=== PATIENT | male | born 1945 | race Caucasian/White ===

== ENCOUNTER 2019-12-15 08:45 | Day surgery (SDC) | payer MEDICARE, BC ==
[~2019-12-15] VITALS: Ht 188 cm; Wt 88.2 kg
[2019-12-15] VITALS (9 sets, daily range): BP systolic 92–141; BP diastolic 53–72
[2019-12-15 09:35] LABS: BASOPHILS % (AUTO) 0.8 % (0-1); EOSINOPHILS % (AUTO) 0.6 % (0-6); HEMATOCRIT 37.5 % (42.0-52.0); HEMOGLOBIN 12.8 g/dl (14.0-17.9); LYMPHOCYTES # (AUTO) 1.4 X10'3 (1.1-4.8); LYMPHOCYTES % (AUTO) 27.8 % (21-51); MEAN CORPUSCULAR HEMOGLOBIN 31.5 PG (27.0-31.0); MEAN CORPUSCULAR HGB CONC 34.2 g/dL (33.0-36.5); MONOCYTES # (AUTO) 0.7 X10'3 (0-0.9); MONOCYTES % (AUTO) 13.9 % (2-12); NEUTROPHILS # (AUTO) 2.9 X10'3 (1.8-7.7); NEUTROPHILS % (AUTO) 56.9 % (42-75); PLATELET COUNT 52 X10'3 (140-440); RED BLOOD COUNT 4.07 X10'6 (4.70-6.10); RED CELL DISTRIBUTION WIDTH 16.9 % (11.5-14.5)
[2019-12-15 09:44] LABS: ALBUMIN 2.2 G/DL (3.4-5.0); ANION GAP 7 (8-16); BLOOD UREA NITROGEN 9 MG/DL (7-18); BUN/CREATININE RATIO 9.8 (5.4-32.0); CALCIUM 8.2 MG/DL (8.5-10.1); CHLORIDE 102 MMOL/L (99-107); CREATININE 0.92 MG/DL (0.60-1.10); GLUCOSE 91 MG/DL (70-104); MAGNESIUM 1.8 MG/DL (1.5-2.4); POTASSIUM 4.4 MMOL/L (3.5-5.1); SODIUM 136 MMOL/L (135-145); TOTAL CARBON DIOXIDE 26.9 MMOL/L (24-32); eGFR 81 ML/MIN
[2019-12-15] MEDS ORDERED: FOLI PO (11:01)
[2019-12-15] MEDS ORDERED: CLOP75TA35 PO (11:02)
[2019-12-15] MEDS ORDERED: THIA50TA10 PO (11:02)
[2019-12-15] MEDS ORDERED: PROP10TA10 PO (11:03)
[2019-12-15] MEDS ORDERED: SPIR25TA5 PO (11:11)
[2019-12-15] MEDS ORDERED: FURO20TA4 PO (11:18)
[2019-12-15] MEDS ORDERED: FURO-150 PO (11:19)
[2019-12-15] MEDS ORDERED: ATOR20TA PO (11:19)
[2019-12-15] MEDS ORDERED: midazolam 2 mg/2 ml injection ONE ×3 (11:21→15:25)
[2019-12-15] MEDS ORDERED: vancomycin 1,000mg inj ONE ×3 (11:22→14:47)
[2019-12-15] MEDS ORDERED: fentaNYL/PF 50MCG/1 ML 2ML syringe ONE ×2 (11:22→14:46)
[2019-12-15] MEDS ORDERED: ceFAZolin 1000mg inj ONE ×2 (11:22→14:47)
[2019-12-15] MEDS ORDERED: LIDOcaine 1% W/epiNEPHrine 1:100,000 20ml vial ONE ×2 (11:22→14:47)
[2019-12-15] MEDS ORDERED: iohexol 350 MG/ML 50ML vial IV ONE (14:47)
== END 2019-12-15 18:00 | disposition home or self-care (01) ==
LOC: SSTAY O 08:45
PROVIDERS: ATTEND Internal Medicine Cardiovascular Disease
DX: I44.1 Atrioventricular block, second degree (principal); I44.7 Left bundle-branch block, unspecified; I35.0 Nonrheumatic aortic (valve) stenosis; R53.83 Other fatigue; E78.5 Hyperlipidemia, unspecified; R53.1 Weakness; K70.31 Alcoholic cirrhosis of liver with ascites; Z79.899 Other long term (current) drug therapy; Z98.890 Other specified postprocedural states; Z98.49 Cataract extraction status, unspecified eye; Z95.2 Presence of prosthetic heart valve; I25.10 Atherosclerotic heart disease of native coronary artery without angina pectoris
CPT/HCPCS: 33208; 36415; 36430; 71046; 80048; 83735; 85025; 85610; 86885; 86900; 86901; 93005; 99152; 99153; C1785; C1894; C1898; J0690; J2250; J3010; J3370; P9035; Q9967; A4565; A4620

== ENCOUNTER 2020-01-08 07:30 | Day surgery (SDC) | payer MEDICARE, BC ==
[~2020-01-08] VITALS: Ht 210.8 cm; Wt 88.0 kg
[2020-01-08] VITALS (13 sets, daily range): BP systolic 104–129; BP diastolic 48–86
[~2020-01-08 07:30] MED LIST: ATOR20TA PO; CLOP75TA35 PO; FOLI PO; FURO-150 PO; FURO20TA4 PO; PROP10TA10 PO; SPIR25TA5 PO; THIA50TA10 PO
[2020-01-08] MEDS ORDERED: normal saline 1000ml 1,000 ML IV SCH (08:55)
[2020-01-08] MEDS ORDERED: fentaNYL/PF 50MCG/1 ML 2ML syringe ONE (09:14)
[2020-01-08] MEDS ORDERED: proCHLORperazine 10 MG/2 ml inj ONE (09:14)
[2020-01-08] MEDS ORDERED: midazolam 2 mg/2 ml injection ONE ×2 (09:14→09:55)
[2020-01-08] MEDS ORDERED: vancomycin 1,000mg inj ONE (09:15)
[2020-01-08] MEDS ORDERED: LIDOcaine 1% W/epiNEPHrine 1:100,000 20ml vial ONE (09:15)
[2020-01-08] MEDS ORDERED: ceFAZolin 1000mg inj ONE (09:15)
[2020-01-08 09:32] LABS: ALBUMIN 2.3 G/DL (3.4-5.0); ANION GAP 6 (8-16); BLOOD UREA NITROGEN 9 MG/DL (7-18); BUN/CREATININE RATIO 10.8 (5.4-32.0); CALCIUM 8.6 MG/DL (8.5-10.1); CHLORIDE 104 MMOL/L (99-107); CREATININE 0.83 MG/DL (0.60-1.10); GLUCOSE 89 MG/DL (70-104); POTASSIUM 4.6 MMOL/L (3.5-5.1); SODIUM 136 MMOL/L (135-145); TOTAL CARBON DIOXIDE 25.7 MMOL/L (24-32); eGFR > 90 ML/MIN
[2020-01-08 09:33] LABS: HEMATOCRIT 37.1 % (42.0-52.0); HEMOGLOBIN 12.5 g/dl (14.0-17.9); MEAN CORPUSCULAR HEMOGLOBIN 31.9 PG (27.0-31.0); MEAN CORPUSCULAR HGB CONC 33.6 g/dL (33.0-36.5); MEAN CORPUSCULAR VOLUME 94.9 FL (78-98); RED BLOOD COUNT 3.91 X10'6 (4.70-6.10); RED CELL DISTRIBUTION WIDTH 18.4 % (11.5-14.5); WHITE BLOOD COUNT 5.8 X10'3 (4.5-11.0)
[2020-01-08 09:34] LABS: BASOPHILS % (AUTO) 0.7 % (0-1); EOSINOPHILS % (AUTO) 38 % (0-6); LYMPHOCYTES # (AUTO) 1.3 X10'3 (1.1-4.8); LYMPHOCYTES % (AUTO) 22.2 % (21-51); MONOCYTES # (AUTO) 0.6 X10'3 (0-0.9); MONOCYTES % (AUTO) 9.9 % (2-12); NEUTROPHILS # (AUTO) 3.9 X10'3 (1.8-7.7); NEUTROPHILS % (AUTO) 66.4 % (42-75); PLATELET COUNT 43 X10'3 (140-440)
[2020-01-08 13:24] LABS: BASOPHILS % (AUTO) 0.6 % (0-1); EOSINOPHILS % (AUTO) 0.9 % (0-6); HEMOGLOBIN 11.4 g/dl (14.0-17.9); MONOCYTES # (AUTO) 0.4 X10'3 (0-0.9); WHITE BLOOD COUNT 5.2 X10'3 (4.5-11.0)
[2020-01-08 13:29] LABS: HEMATOCRIT 33.7 % (42.0-52.0); LYMPHOCYTES % (AUTO) 19.1 % (21-51); MEAN CORPUSCULAR HEMOGLOBIN 32.3 PG (27.0-31.0); MEAN CORPUSCULAR HGB CONC 33.8 g/dL (33.0-36.5); MEAN CORPUSCULAR VOLUME 95.6 FL (78-98); MONOCYTES % (AUTO) 7.3 % (2-12); NEUTROPHILS # (AUTO) 3.8 X10'3 (1.8-7.7); NEUTROPHILS % (AUTO) 72.1 % (42-75); RED BLOOD COUNT 3.52 X10'6 (4.70-6.10); RED CELL DISTRIBUTION WIDTH 18.7 % (11.5-14.5)
[2020-01-08 13:31] LABS: PLATELET COUNT 49 X10'3 (140-440)
== END 2020-01-08 15:10 | disposition home or self-care (01) ==
LOC: SSTAY O 07:30
PROVIDERS: ATTEND Internal Medicine Cardiovascular Disease
DX: T82.867A Thrombosis due to cardiac prosthetic devices, implants and grafts, initial encounter (principal); I25.10 Atherosclerotic heart disease of native coronary artery without angina pectoris; K70.31 Alcoholic cirrhosis of liver with ascites; E78.5 Hyperlipidemia, unspecified; F17.210 Nicotine dependence, cigarettes, uncomplicated; Z98.41 Cataract extraction status, right eye; Z98.42 Cataract extraction status, left eye; Z98.890 Other specified postprocedural states; Z79.01 Long term (current) use of anticoagulants; Z79.899 Other long term (current) drug therapy; Y83.8 Other surgical procedures as the cause of abnormal reaction of the patient, or of later complication, without mention of misadventure at the time of the procedure; Y92.89 Other specified places as the place of occurrence of the external cause
CPT/HCPCS: 33222; 36415; 80048; 83735; 85025; 85610; 86885; 86900; 86901; 93005; J0690; J0780; J2250; J3010; J3370; J7050; P9035; 99152; 99153; A4565; A4620; A6260; A6449

== ENCOUNTER 2020-02-01 06:03 | Inpatient (IN) | payer MEDICARE, BC ==
[~2020-02-01] VITALS: Ht 185.4 cm; Wt 91.5 kg
[2020-02-01] VITALS (10 sets, daily range): BP systolic 77–124; BP diastolic 44–57
[~2020-02-01 06:03] MED LIST changes: -FURO-150 PO
[2020-02-01] MEDS: normal saline 1000ml 1,000 ML IV SCH (06:30)
[2020-02-01] MEDS ORDERED: midazolam 2 mg/2 ml injection ONE ×2 (07:33→08:03)
[2020-02-01] MEDS ORDERED: fentaNYL/PF 50MCG/1 ML 2ML syringe ONE (07:33)
[2020-02-01] MEDS ORDERED: LIDOcaine 1% W/epiNEPHrine 1:100,000 20ml vial ONE (07:34)
[2020-02-01] MEDS ORDERED: ceFAZolin 1000mg inj ONE (07:35)
[2020-02-01] MEDS ORDERED: vancomycin 1,000mg inj ONE (07:35)
[2020-02-01 07:39] LABS: BASOPHILS % (AUTO) 0.7 % (0-1); HEMATOCRIT 37.2 % (42.0-52.0); HEMOGLOBIN 12.5 g/dl (14.0-17.9); LYMPHOCYTES # (AUTO) 1.1 X10'3 (1.1-4.8); LYMPHOCYTES % (AUTO) 24.6 % (21-51); MEAN CORPUSCULAR HEMOGLOBIN 32.1 PG (27.0-31.0); MEAN CORPUSCULAR HGB CONC 33.6 g/dL (33.0-36.5); MEAN CORPUSCULAR VOLUME 95.4 FL (78-98); MONOCYTES # (AUTO) 0.6 X10'3 (0-0.9); MONOCYTES % (AUTO) 12.6 % (2-12); NEUTROPHILS # (AUTO) 2.8 X10'3 (1.8-7.7); NEUTROPHILS % (AUTO) 61.1 % (42-75); PLATELET COUNT 58 X10'3 (140-440); RED CELL DISTRIBUTION WIDTH 17.1 % (11.5-14.5); WHITE BLOOD COUNT 4.6 X10'3 (4.5-11.0)
[2020-02-01 07:47] LABS: ALBUMIN 2.3 G/DL (3.4-5.0); ANION GAP 6 (8-16); BLOOD UREA NITROGEN 14 MG/DL (7-18); BUN/CREATININE RATIO 15.4 (5.4-32.0); CALCIUM 8.4 MG/DL (8.5-10.1); CHLORIDE 106 MMOL/L (99-107); CREATININE 0.91 MG/DL (0.60-1.10); GLUCOSE 103 MG/DL (70-104); MAGNESIUM 1.8 MG/DL (1.5-2.4); POTASSIUM 4.1 MMOL/L (3.5-5.1); SODIUM 138 MMOL/L (135-145); TOTAL CARBON DIOXIDE 26.1 MMOL/L (24-32); eGFR 82 ML/MIN
[2020-02-01 07:57] LABS: PARTIAL THROMBOPLASTIN TIME 32 SECONDS (22-32)
[2020-02-01] MEDS ORDERED: FOLI0.4T14 PO (11:30)
--- NOTE | 2020-02-01 18:45 | NUR ---
received report from IVORY Goldman
[2020-02-01] MEDS: propranolol 10mg tablet PO SCH (20:00)
[2020-02-01] MEDS: spironolactone 25 MG tablet PO SCH (20:00)
[2020-02-01] MEDS ORDERED: atorvastatin 20mg tablet PO SCH (21:00)
[2020-02-02 02:00] VITALS: BP 101/43
[2020-02-02] MEDS: normal saline 1000ml 1,000 ML IV SCH (02:30)
--- NOTE | 2020-02-02 06:47 | NUR ---
gave report to IVORY Jansen
--- NOTE | 2020-02-02 06:53 | NUR ---
Patient in room MED 317. I have received report from IVORY Barboza and had the opportunity to ask questions and assume patient care.
[2020-02-02] MEDS: spironolactone 25 MG tablet PO SCH (07:48)
[2020-02-02] MEDS: propranolol 10mg tablet PO SCH (07:54)
[2020-02-02 08:00] VITALS: BP 118/51
[2020-02-02] MEDS ORDERED: furosemide 20MG tablet PO SCH (08:00)
[2020-02-02] MEDS ORDERED: thiamine 100mg tablet PO SCH (08:00)
[2020-02-02 11:00] VITALS: BP 120/56
--- NOTE | 2020-02-02 12:05 | NUR ---
Discharged. PIV out, meds called into [facility] in [place]. Educated on meds and follow-up. Wheeled patient out, left with .
== END 2020-02-02 12:00 | disposition home or self-care (01) | DRG 262 ==
LOC: SSTAY O 06:03 → MED 3N 08:45 → SSTAY O 10:59 → MED 3N 11:00 → SSTAY O 02-02 12:00 → MED 3N 02-02 12:00
PROVIDERS: ADMIT Internal Medicine Cardiovascular Disease; ATTEND Internal Medicine Cardiovascular Disease
PROC: 0JPT0PZ Removal of Cardiac Rhythm Related Device from Trunk Subcutaneous Tissue and Fascia, Open Approach (ICD-10-PCS; principal; 2020-02-01)
DX: T82.7XXA Infection and inflammatory reaction due to other cardiac and vascular devices, implants and grafts, initial encounter (principal); I44.1 Atrioventricular block, second degree; Y83.8 Other surgical procedures as the cause of abnormal reaction of the patient, or of later complication, without mention of misadventure at the time of the procedure; Z95.0 Presence of cardiac pacemaker; Y92.89 Other specified places as the place of occurrence of the external cause
CPT/HCPCS: 33222; 33235; 36415; 80048; 83735; 85025; 85730; 93005; 99152; 99153; A6258; A6260; GO378; J0690; J2250; J3010; J3370; J7030